=== PATIENT | male | born 1950 | race Caucasian/White ===

== ENCOUNTER 2017-08-11 12:49 | Inpatient (IN) | payer OTHER ==
[~2017-08-11] VITALS: Ht 185.4 cm; Wt 65.4 kg
[2017-08-11 13:52] LABS: BASOPHILS 0.1 % (0-2); EOSINOPHILS 0 % (0-7); HEMATOCRIT 41.7 % (42.0-54.0); HEMOGLOBIN 14.4 g/dL (13.5-17.5); IMMATURE GRANULOCYTES 0.3 % (0-5); LYMPHOCYTES 4.3 % (15-50); MCH 31.5 pg (26.0-34.0); MCHC 34.5 g/dL (31.0-37.0); MCV 91.2 fL (80.0-100.0); MEAN PLATELET VOLUME 11.5 fL (7.4-10.4); MONOCYTES 6.8 % (2-11); NEUTROPHILS 88.5 % (40-80); PLATELET COUNT 215 10x3/uL (130-400); RBC 4.57 10x6/uL (4.20-6.10); RDW 14.3 % (11.5-14.5); WBC 12.5 10x3/uL (4.8-10.8)
[2017-08-11 14:16] LABS: ALBUMIN 3.4 g/dL (3.4-5.0); ANION GAP 10.7 mmol/L (8-16); BILIRUBIN - TOTAL 0.38 mg/dL (0.2-1.3); CARBON DIOXIDE 28.2 mmol/L (21.0-32.0); CREATININE - SERUM 1.2 mg/dL (0.6-1.3); POTASSIUM - SERUM 3.9 mmol/L (3.5-5.1); PROTEIN - SERUM 7.2 g/dL (6.4-8.2)
[2017-08-11 14:56] LABS: APPEARANCE CLEAR (CLEAR); BILIRUBIN NEGATIVE (NEGATIVE); COLOR YELLOW (YELLOW); GLUCOSE NEGATIVE (NEGATIVE); KETONE NEGATIVE (NEGATIVE); NITRITE NEGATIVE (NEGATIVE); PROTEIN NEGATIVE (NEGATIVE); UROBILINOGEN NORMAL (NORMAL)
[2017-08-11 16:17] LABS: UDS - AMPHET NEGATIVE QUAL (NEGATIVE); UDS - BENZO NEGATIVE QUAL (NEGATIVE); UDS - COCAINE NEGATIVE QUAL (NEGATIVE); UDS - OPIATE NEGATIVE QUAL (NEGATIVE); UDS - PCP NEGATIVE QUAL (NEGATIVE); UDS - THC POSITIVE QUAL (NEGATIVE)
[2017-08-11 16:19] LABS: UDS - BARB POSITIVE QUAL (NEGATIVE)
[2017-08-12 15:37] VITALS: Ht 185.4 cm; Wt 65.4 kg
[2017-08-12] MEDS ORDERED: NIFEDIPINE ER30 MG PO (17:46)
[2017-08-12] MEDS ORDERED: K-DUR20 MEQ PO (17:46)
[2017-08-12] MEDS ORDERED: COZAAR50 MG PO (17:47)
[2017-08-12] MEDS ORDERED: METOPROLOL TART50 MG PO (17:47)
[2017-08-12] MEDS ORDERED: ASPIRIN325 MG PO (17:48)
[2017-08-12 21:52] VITALS: BP 172/75
[2017-08-13 06:17] VITALS: BP 165/90
[2017-08-13 08:49] VITALS: BP 171/87
== END 2017-08-13 13:48 | disposition home or self-care (01) | DRG 72 ==
LOC: D.ER 12:49 → D.M2 08-12 13:07
PROVIDERS: Emergency Medicine
DX: G93.40 Encephalopathy, unspecified (principal); F12.10 Cannabis abuse, uncomplicated; F13.10 Sedative, hypnotic or anxiolytic abuse, uncomplicated; Z87.891 Personal history of nicotine dependence; R05 Cough